=== PATIENT | female | born 2000 | race Caucasian/White ===

== ENCOUNTER 2018-05-23 18:21 | Emergency (ER) | payer SELFPAY ==
[2018-05-23 18:28] VITALS: Ht 149.9 cm
[2018-05-23 19:33] LABS: microscopic required? NO
[2018-05-23 19:39] LABS: BASOPHIL % 0.5 % (0-2); RED CELL DISTRIBUTION WIDTH 13.6 % (11.5-14.5)
[2018-05-23 19:47] LABS: UA SPECIFIC GRAVITY >=1.030 (1.005-1.035); urine erythrocyte NEGATIVE (NEGATIVE)
[2018-05-23 19:47] LABS: CALCIUM 9.1 mg/dL (8.5-10.1); CARBON DIOXIDE 25.9 mmol/L (21-32); CHLORIDE SERUM 105 mmol/L (98-107); CREATININE SERUM 0.8 mg/dL (0.6-1.0); GFR1 > 60 mL/min; GLUCOSE SERUM 88 mg/dL (74-106); POTASSIUM SERUM 3.3 mmol/L (3.5-5.1); SODIUM SERUM 140 mmol/L (136-145)
[2018-05-23 19:48] LABS: PLATELET COUNT 350 x10^3mcL (130-400)
[2018-05-23 19:51] LABS: ALKALINE PHOSPHATASE 100 U/L (46-116); ALT/SGPT 33 U/L (14-59); AST/SGOT 27 U/L (15-37); BILIRUBIN TOTAL 0.5 mg/dL (0.20-1.00)
[2018-05-23 20:22] VITALS: BP 114/68
== END 2018-05-23 20:22 | disposition home or self-care (01) ==
LOC: ED 18:21
PROVIDERS: Emergency Medicine
DX: F41.9 Anxiety disorder, unspecified (principal); E87.6 Hypokalemia; R20.2 Paresthesia of skin; M54.6 Pain in thoracic spine; R07.89 Other chest pain; R11.0 Nausea; F17.210 Nicotine dependence, cigarettes, uncomplicated
CPT/HCPCS: 36415; J2060